=== PATIENT | male | born 1975 | race American Indian/Alaskan Native ===

== ENCOUNTER 2019-04-09 02:20 | Emergency (ER) | payer OTHER ==
[2019-04-09] MEDS ORDERED: NACL 0.9% 1000 ML 1,000 ML IV ONE (03:34)
[2019-04-09] MEDS ORDERED: ZOFRAN IV ONE (03:34)
--- NOTE | 2019-04-09 03:38 | Emergency Department Report ---
ED Abdominal Pain HPI - General Chief Complaint: Abdominal Pain Stated Complaint: ABD PAIN Time Seen by Provider: 04/09/19 03:27 Source: patient Mode of arrival: Ambulatory Limitations: No Limitations - History of Present Illness Initial Comments: 43-year-old [place] male presents to the emergency room. Abdominal pain that's been intermittent for several days. Patient states today that it started about 4 hours ago. Patient reports that is located epigastric area with nausea and vomiting. Patient denies any diarrhea. Patient reports he feels like gas and bloated. Patient has had a appendectomy in the past. He has no other medical history. She has no known drug allergies currently takes no medications on a daily basis. MD Complaint: abdominal pain Onset/Timin -: days(s) Time: 18:00 Location: periumbilical, epigastric Severity scale (0 -10): 10 Quality: sharp Consistency: constant Improves With: nothing Worsens With: nothing Associated Symptoms: nausea, vomiting. denies: diarrhea, fever, constipation, dysuria, hematemesis, hematochezia, hematuria - Related Data Previous Rx's Medication Instructions Recorded Last Taken Type traMADol [Ultram 50 MG tab] 50 mg PO Q6HR PRN #12 tablet 04/09/19 Unknown Rx Allergies Allergy/AdvReac Type Severity Reaction Status Date / Time No Known Allergies Allergy Verified 04/09/19 02:23 ED Review of Systems ROS: Stated complaint: ABD PAIN Other details as noted in HPI Comment: All other systems reviewed and negative Gastrointestinal: abdominal pain, nausea, vomiting ED Past Medical Hx - Past Medical History Previous Medical History?: No - Surgical History Past Surgical History?: Yes Hx Appendectomy: Yes - Social History Smoking Status: Never Smoker Substance Use Type: None - Medications Home Medications: Home Medications Medication Instructions Recorded Confirmed Last Taken Type traMADol [Ultram 50 MG tab] 50 mg PO Q6HR PRN #12 tablet 04/09/19 Unknown Rx ED Physical Exam - General Limitations: No Limitations General appearance: alert, in no apparent distress - Head Head exam: Present: atraumatic, normocephalic - Eye Eye exam: Present: normal appearance - ENT ENT exam: Present: mucous membranes moist - Neck Neck exam: Present: normal inspection - Respiratory Respiratory exam: Present: normal lung sounds bilaterally. Absent: respiratory distress - Cardiovascular Cardiovascular Exam: Present: regular rate, normal rhythm. Absent: systolic murmur, diastolic murmur, rubs, gallop - GI/Abdominal GI/Abdominal exam: Present: soft, distended, tenderness. Absent: guarding - Rectal Rectal exam: Present: deferred - Back Exam Back exam: Present: normal inspection, full ROM - Neurological Exam Neurological exam: Present: alert, oriented X3 - Psychiatric Psychiatric exam: Present: normal affect, normal mood - Skin Skin exam: Present: warm, dry, intact, normal color. Absent: rash ED Course Vital Signs 04/09/19 04/09/19 02:24 05:35 Temperature 97.9 F Pulse Rate 84 Respiratory 16 16 Rate Blood Pressure 136/95 O2 Sat by Pulse 97 Oximetry ED Medical Decision Making - Lab Data Result diagrams: 04/09/19 02:30 04/09/19 02:30 - Radiology Data Radiology results: report reviewed Patient: YVETTE QUINN MR#: [id number] : 1975 Acct:[id number] Age/Sex: 43 / M ADM Date: 04/09/19 Loc: ED Attending Dr: Ordering Physician: JESSICA SHORE Date of Service: 04/09/19 Procedure(s): CT abdomen pelvis w con Accession Number(s): [id number] cc: JESSICA SHORE CT of the abdomen and pelvis with intravenous contrast INDICATION / CLINICAL INFORMATION: Epigastric pain and tenderness. TECHNIQUE: The patient received 100 cc Omnipaque [address] scans at this location are performed using CT dose reduction for ALARA by means of automated exposure control. COMPARISON: None. FINDINGS: ABDOMEN: There is a small calculus near the neck the gallbladder. There is also a small calculus in the region of the cystic duct. The gallbladder is normal in size without definite wall thickening. There is mild diffuse fatty infiltration of the liver. There are a couple of small simple cysts in the superior aspect of the liver. The bile ducts, pancreas, spleen, adrenal glands, and kidneys demonstrate no significant abnormality. There is a small hiatal hernia. The bowel is otherwise normal. No adenopathy is seen. The lung bases are clear. PELVIS: The prostate gland is mildly enlarged. The distal ureters and urinary bladder are normal. There is a small fat-containing right inguinal hernia. The right testicle is high riding. There is no evidence of appendicitis or diverticulitis. There are moderate degenerative changes in the lower lumbar spine. IMPRESSION: 1. A couple of small gallstones in the bladder neck and cystic duct. No CT evidence of acute cholecystitis. Gallbladder ultrasound or hepatobiliary scintigraphy may be helpful in further evaluation. 2. Small fat-containing right inguinal hernia. The right testicle is high riding. Clinical correlation is recommended for cryptorchidism. Signer Name: Emil Jalloh MD Signed: 04/09/2019 5:27 AM Workstation Name: [id number] Transcribed By: RT Dictated By: Emil Jalloh MD Electronically Authenticated By: Emil Jalloh MD Signed Date/Time: 04/09/19526 DD/ 0 TD/TT: - Medical Decision Making 43-year-old [place] male presents to the emergency room. Abdominal pain that's been intermittent for several days. Patient states today that it started about 4 hours ago. Patient reports that is located epigastric area with nausea and vomiting. Patient denies any diarrhea. Patient reports he feels like gas and bloated. Patient has had a appendectomy in the past. He has no other medical history. She has no known drug allergies currently takes no medications on a daily basis. CBC CMP lipase urinalysis and CT with contrast has been ordered. Patient was ordered IV fluids and Zofran 4 mg IV. Patient be reevaluated once labs and nir dies have been completed. Discussed case with Dr. Garcia she feels patient is stable to be discharged home with a follow-up to surgery. Patient be placed on tramadol pain management. Critical care attestation.: If time is entered above; I have spent that time in minutes in the direct care of this critically ill patient, excluding procedure time. ED Disposition Clinical Impression: Gallstones without obstruction of gallbladder Qualifiers: Cholelithiasis location: bile duct Cholangitis presence: without cholangitis Qualified Code(s): K80.50 - Calculus of bile duct without cholangitis or cholecystitis without obstruction Disposition: -01 TO HOME OR SELFCARE Is pt being admited?: No Does the pt Need Aspirin: No Condition: Stable Instructions: Biliary Colic (ED) Additional Instructions: Please take pain medication as needed. It's very important for you to follow up with general surgery have listed several names below for your convenience. Increase her fluid intake at venture diet as tolerated. Prescriptions: traMADol [Ultram 50 MG tab] 50 mg PO Q6HR PRN #12 tablet PRN Reason: Pain [facility] [Referring] - 3-5 Days KIMBER CONTRERAS MD [Staff Physician] - 3-5 Days KERRY BERMUDEZ DO [Staff Physician] - 3-5 Days Forms: Work/School Release Form(ED), Accompanied Note
[2019-04-09 03:51] LABS: Basophils % (Auto) 0.4 % (0.0-1.8); Eosinophils # (Auto) 0.1 K/mm3 (0.0-0.4); Eosinophils % (Auto) 1.9 % (0.0-4.3); Hematocrit 44.5 % (35.5-45.6); Hemoglobin 15.7 gm/dl (11.8-15.2); Lymphocytes # (Auto) 2.5 K/mm3 (1.2-5.4); Lymphocytes % (Auto) 39.9 % (13.4-35.0); Mean Corpuscular HGB Conc 35 % (32-34); Mean Corpuscular Volume 78 fl (84-94); Monocytes # (Auto) 0.6 K/mm3 (0.0-0.8); Monocytes % (Auto) 9.4 % (0.0-7.3); Platelet Count 303 K/mm3 (140-440)
[2019-04-09 04:21] LABS: Alanine Aminotransferase 27 units/L (7-56); Albumin 4.4 g/dL (3.9-5); BUN/Creatinine Ratio 10; Blood Urea Nitrogen 12 mg/dL (9-20); Calcium 8.9 mg/dL (8.4-10.2); Hemolysis Index 14
[2019-04-09] MEDS ORDERED: MORPHINE IV ONE (04:33)
[2019-04-09 05:10] LABS: Bilirubin,Urine NEG (Negative); Blood,Urine NEG (Negative); Color,Urine Yellow (Yellow); Mucus,Urine FEW /HPF; Protein,Urine <15 mg/dL mg/dL (Negative); Urobilinogen,Urine < 2.0 mg/dL (<2.0)
--- NOTE | 2019-04-09 05:31 | Cat Scan Report ---
CT of the abdomen and pelvis with intravenous contrast INDICATION / CLINICAL INFORMATION: Epigastric pain and tenderness. TECHNIQUE: The patient received 100 cc Omnipaque [address] scans at this location are performed using CT dose reduction for ALARA by means of automated exposure control. COMPARISON: None. FINDINGS: ABDOMEN: There is a small calculus near the neck the gallbladder. There is also a small calculus in t he region of the cystic duct. The gallbladder is normal in size without definite wall thickening. The re is mild diffuse fatty infiltration of the liver. There are a couple of small simple cysts in the s uperior aspect of the liver. The bile ducts, pancreas, spleen, adrenal glands, and kidneys demonstrate no significant abnormality. There is a small hiatal hernia. The bowel is otherwise normal. No adenopathy is seen. The lung bases are clear. PELVIS: The prostate gland is mildly enlarged. The distal ureters and urinary bladder are normal. The re is a small fat-containing right inguinal hernia. The right testicle is high riding. There is no ev idence of appendicitis or diverticulitis. There are moderate degenerative changes in the lower lumbar spine. IMPRESSION: 1. A couple of small gallstones in the bladder neck and cystic duct. No CT evidence of acute cholecys titis. Gallbladder ultrasound or hepatobiliary scintigraphy may be helpful in further evaluation. 2. Small fat-containing right inguinal hernia. The right testicle is high riding. Clinical correlatio n is recommended for cryptorchidism. Signer Name: Emil Jalloh MD Signed: 04/09/2019 5:27 AM Workstation Name: [email or web address]
[2019-04-09 06:47] VITALS: BP 113/71
== END 2019-04-09 06:45 | disposition home or self-care (01) ==
LOC: ED 02:20
DX: K80.80 Other cholelithiasis without obstruction (principal)
CPT/HCPCS: 36415; 74177; 80053; 81001; 83690; 85025; 96361; 96374; 96375; 99284; J2270; J2405; J7030; Q9967